=== PATIENT | female | born 1990 | race Caucasian/White ===

== ENCOUNTER 2017-12-28 07:42 | Emergency (ER) | payer OTHER ==
[~2017-12-28] VITALS: Ht 157.5 cm; Wt 45.4 kg
[~2017-12-28 07:42] MED LIST: ABILIFY2 MG; CLONAZEPAM0.5 MG; PRISTIQ25 MG; RESTORIL30 M1
[2017-12-28] MEDS ORDERED: ZYRTEC10 M3 (08:03)
== END 2017-12-28 12:42 | disposition home or self-care (01) ==
LOC: ER 07:42
DX: N39.0 Urinary tract infection, site not specified (principal); R10.2 Pelvic and perineal pain